=== PATIENT | female | born 1960 | race Caucasian/White ===

== ENCOUNTER → 2020-03-21 | Outpatient (CLI) | payer BC, OTHER ==
[~2020-03-21] MED LIST: CIPR500; CONEST.625 PO; MULVITMIND PO
[2020-03-25 15:10] LABS: HPV 16 Negative (Negative); HPV 18 Negative (Negative); HPV OTHER HR TYPES Negative (Negative)
== END | disposition home or self-care (01) ==
LOC: PLD 19:21
PROVIDERS: Family Medicine
DX: Z12.4 Encounter for screening for malignant neoplasm of cervix (principal)
CPT/HCPCS: 87624; G0145

== ENCOUNTER → 2020-04-06 | Outpatient (CLI) | payer BC, OTHER | LOC: PLD 11:12 → LAB SHORT 11:12 | DX: L57.0 Actinic keratosis (principal) | CPT/HCPCS: 88305; 88312 ==

== ENCOUNTER 2021-09-04 10:52 | Day surgery (SDC) | payer BC, OTHER ==
[~2021-09-04] VITALS: Ht 165.1 cm; Wt 80.7 kg
[2021-09-04] MEDS ORDERED: DICL75ER PO (11:51)
--- NOTE | 2021-09-04 12:56 | NUR ---
09/04/21 1256 Jeramie Glez BUPIVACAINE 0.5% 30ML MIXED W/ EPI 0.15ML PER ORDER TO MAKE BUPIVACAINE 0.5% 1:200,000 FOR INJECTION AT [facility] BY DR BARON. 30 [facility]
--- NOTE | 2021-09-04 14:21 | NUR ---
09/04/21 1421 Carlota Sung GAVE REPORT TO EDGAR DE LA ROSA
== END 2021-09-04 15:45 | disposition home or self-care (01) ==
LOC: ORSCSDS 10:52
PROVIDERS: Podiatrist Foot & Ankle Surgery
PROC: 0SGH04Z Fusion of Right Tarsal Joint with Internal Fixation Device, Open Approach (ICD-10-PCS; principal; 2021-09-04 12:30)
PROC: 0QSQ04Z Reposition Right Toe Phalanx with Internal Fixation Device, Open Approach (ICD-10-PCS; principal; 2021-09-04 12:30)
DX: M21.611 Bunion of right foot (principal); I10 Essential (primary) hypertension; Z79.899 Other long term (current) drug therapy
CPT/HCPCS: A9270; C1713; C1776; J0171; J0690; J1100; J1885; J2250; J2405; J2550; J2704; J2765; J3010; J7120

== ENCOUNTER → 2021-11-16 | Outpatient (CLI) | payer BC, OTHER ==
[~2021-11-16] MED LIST changes: +DICL75ER PO
== END | disposition home or self-care (01) ==
LOC: LAB SHORT 16:13 → LAB 16:13
PROVIDERS: Family Medicine
DX: Z12.4 Encounter for screening for malignant neoplasm of cervix (principal)
CPT/HCPCS: G0145

== ENCOUNTER → 2022-12-06 | Outpatient (CLI) | payer BC, OTHER ==
[2022-12-06 14:51] LABS: Alanine Aminotransfer (ALT/SGP 26 U/L (12-78); Albumin, Blood 3.4 g/dL (3.4-5.0); Albumin/Globulin Ratio 0.8 (0.8-1.8); Alk Phos 66 U/L (50-136); Anion Gap 4 mmol/L (6-16); Aspartate Aminotrans (AST/SGOT 20 U/L (12-37); Bilirubin, Total 0.2 mg/dL (0.1-1.0); Blood Urea Nitrogen 17 mg/dL (8-24); Bun/Creatinine Ratio 28.4 (12.0-20.0); CHOL/HDL RATIO 3.6; CO2, Blood 25 mmol/L (21-32); Calcium, Blood 9.3 mg/dL (8.5-10.1); Chloride, Blood 110 mmol/L (98-108); Cholesterol 283 mg/dL (50-200); Globulin, Blood 4.1 g/dL (2.2-4.0); Glomerular Filtration Rate 102 (60-); Glucose, Blood 95 mg/dL (70-99); HDL Cholesterol 79 mg/dL (>39); LDL/HDL RATIO 2.4; Low Density Lipoprotein Chol 187 mg/dL (0-110); Sodium, Blood 139 mmol/L (136-145); Total Protein, Blood 7.5 g/dL (6.4-8.2); Triglycerides 84 mg/dL (30-160); Very Low Density Lipoprot Chol 16 mg/dL (6-32)
== END | disposition home or self-care (01) ==
LOC: LAB 09:00 → LAB SHORT 09:00
PROVIDERS: Physician Assistant
DX: E78.2 Mixed hyperlipidemia (principal); I10 Essential (primary) hypertension
CPT/HCPCS: 80053; 80061

== ENCOUNTER → 2023-05-17 | Outpatient (CLI) | payer BC, OTHER ==
[2023-05-20 08:21] LABS: HSV 1 SUBTYPE BY PCR Not Detected; HSV 2 SUBTYPE BY PCR Not Detected; HSV SUBTYPE SOURCE MOUTH
== END ==
LOC: LAB SHORT 11:39 → LAB 11:39
PROVIDERS: Physician Assistant
DX: K12.0 Recurrent oral aphthae (principal)
CPT/HCPCS: 87529

== ENCOUNTER 2023-08-02 13:46 | Emergency (ER) | payer BC, OTHER ==
[~2023-08-02] VITALS: Ht 165.1 cm; Wt 86.2 kg
[~2023-08-02 13:46] MED LIST changes: +ACET500 PO
[2023-08-02 14:02] VITALS: BP 173/77
[2023-08-02 14:36] LABS: BASOPHILS ABSOLUTE AUTO 0.06 K/mm3 (0.00-0.23); BASOPHILS PERCENT AUTO 1 % (0-2); EOSINOPHILS ABSOLUTE AUTO 0.07 K/mm3 (0.00-0.68); EOSINOPHILS PERCENT AUTO 1 % (0-6); Hematocrit 43.2 % (33.0-51.0); Hemoglobin 14.5 g/dL (11.5-16.0); IMMATURE GRAN ABSOLUTE AUTO 0.02 K/mm3 (0.00-0.10); IMMATURE GRAN PERCENT AUTO 0 % (0-1); LYMPHOCYTES ABSOLUTE AUTO 1.51 K/mm3 (0.84-5.20); LYMPHOCYTES PERCENT AUTO 20 % (21-46); MONOCYTES ABSOLUTE AUTO 0.46 K/mm3 (0.16-1.47); MONOCYTES PERCENT AUTO 6 % (4-13); Mean Corpuscular HGB 29.5 pg (26.0-34.0); Mean Corpuscular HGB Conc 33.6 g/dL (31.5-36.5); Mean Corpuscular Volume 88 fL (80-100); NEUTROPHILS ABSOLUTE AUTO 5.64 K/mm3 (1.96-9.15); NEUTROPHILS PERCENT AUTO 73 % (41-73); Platelet Count 281 K/mm3 (150-400); RDW Coefficient Variation 12.7 % (11.7-14.2); RDW Standard Deviation 41.1 fL (35.1-46.3); Red Blood Cell Count 4.92 M/mm3 (3.80-5.20); White Blood Cell Count 7.76 K/mm3 (4.00-11.30)
[2023-08-02 15:01] LABS: Albumin, Blood 3.6 g/dL (3.4-5.0); Albumin/Globulin Ratio 0.9 (0.8-1.8); Bilirubin, Total 0.3 mg/dL (0.1-1.0); Bun/Creatinine Ratio 23.4 (12.0-20.0); Calcium, Blood 9.3 mg/dL (8.5-10.1); Creatinine, Blood 0.68 mg/dL (0.40-1.00); Globulin, Blood 3.9 g/dL (2.2-4.0); Potassium, Blood 3.7 mmol/L (3.5-5.5); Total Protein, Blood 7.5 g/dL (6.4-8.2)
[2023-08-02 15:09] LABS: Source, Urine Clean Catch
[2023-08-02 15:20] LABS: Appearance, Urine Clear (Clear); Bilirubin, Urine Neg (Neg); Blood, Urine 2+ (Neg); Color, Urine Yellow (P-Yellow); Glucose Qualitative, Urine Neg (Neg); Ketones, Urine 2+ (Neg); Leukocyte Esterase, Urine Neg (Neg); Nitrite, Urine Neg (Neg); Protein, Urine Neg (Neg); Urobilinogen, Urine NORM (Normal)
[2023-08-02 15:43] LABS: Bacteria Few /hpf; Red Blood Cells, Urine 0-2 /hpf (0-2); Squamous Epithelial Cells Few /hpf (Few); White Blood Cells, Urine 0-2 /hpf (0-5)
== END 2023-08-02 17:59 | disposition home or self-care (01) ==
LOC: ER 13:46
PROVIDERS: Physician Assistant
DX: S76.011A Strain of muscle, fascia and tendon of right hip, initial encounter (principal); X58.XXXA Exposure to other specified factors, initial encounter
CPT/HCPCS: 74177; 80053; 81001; 83690; 85025; 99284-25; Q9967